=== PATIENT | female | born 1960 | race Caucasian/White ===

== ENCOUNTER 2019-10-17 13:25 | Emergency (ER) | payer BC ==
[2019-10-17] MEDS ORDERED: Sodium Chloride 0.9% 1,000 ML IV SCH (14:15)
[2019-10-17] MEDS ORDERED: Levofloxacin/Dextrose 5%-Water 500 MG in Premix Bag 1 BAG IV ONE (15:13)
--- NOTE | 2019-10-17 15:14 | EDM.PDOC ---
ED HPI GENERAL MEDICAL PROBLEM - General Chief Complaint: General Stated Complaint: weak, "dont feel good" Time Seen by Provider: 10/17/19 14:21 Source of Information: Reports: Patient, Family (daughter (RN)) History Limitations: Reports: No Limitations - History of Present Illness INITIAL COMMENTS - FREE TEXT/NARRATIVE: Josselyn is a 58 yr old female who presents to the ED with complaints of weakness and just not feeling well. She states she is currently being treated for Bone cancer in the left femur. She states it started with ovarian cancer and then ended up getting lung cancer with the mets to the bone. She admits to undergoing chemotherapy last week and doesn't seem to be doing well with it. She did have radiation to the left femur at the beginning of this month. Last chemo session she states she had to chemo agents. She has been nauseated since the chemo but was able to keep some pudding down today. Overall feels like she is continuously getting weaker. Her daughter is a nurse for home health/ hospice and is also her bean sprout grower at this time. Requesting to go home today as she feels more comfortable at home. She continues to have burning with urination which she has been getting antibiotics for. She admits she hasn't felt like drinking fluids and hasn't had much water. Bilateral Feet Pain Score (Numeric/FACES): 4 - Related Data Allergies Allergy/AdvReac Type Severity Reaction Status Date / Time hydrocodone Allergy Rash Verified 10/17/19 13:32 Sulfa (Sulfonamide Allergy Rash Verified 10/17/19 13:32 Antibiotics) Home Meds: Home Meds Gabapentin 100 mg PO DAILY 06/02/14 [History] Gabapentin 300 mg PO BEDTIME 06/02/14 [History] Rosuvastatin [Crestor] 5 mg PO BEDTIME 06/02/14 [History] Aspirin [Halfprin] 81 mg PO BEDTIME 10/02/14 [History] Lisinopril 20 mg PO DAILY 10/02/14 [History] Metoprolol Succinate [Toprol Xl] 50 mg PO BID 10/02/14 [History] oxyCODONE HCl/Acetaminophen [oxyCODONE-Acetaminophen 5-325] 1 - 2 tab PO Q4H PRN 10/02/14 [History] ALPRAZolam [Alprazolam] 0.25 - 0.5 mg PO BEDTIME PRN 10/29/15 [History] Clopidogrel Bisulfate [Clopidogrel] 75 mg PO DAILY 10/29/15 [History] Morphine [MS Contin] 30 mg PO TID 10/29/15 [History] Ondansetron [Zofran] 8 mg PO TID PRN 10/29/15 [History] Bumetanide 1 mg PO ASDIRECTED 12/15/17 [History] Calcium Carbonate [Calcium] 500 mg PO BID 12/15/17 [History] Gabapentin [Neurontin] 100 mg PO QAM 08/18/18 [History] Warfarin Sodium [Coumadin] 5 mg PO ASDIRECTED 04/23/19 [History] Albuterol Sulfate [Proair Digihaler] 2 inh INH Q6H PRN 10/17/19 [History] Cholecalciferol (Vitamin D3) [Vitamin D3] 2,000 unit PO DAILY 10/17/19 [History] Magnesium Chloride [Slow-Mag] 1 tab PO BID 10/17/19 [History] Nystatin [Nystatin Oral Syringe] 100,000 unit PO QID PRN 10/17/19 [History] OLANZapine [Zyprexa] 5 mg PO BEDTIME 10/17/19 [History] Omeprazole 20 mg PO DAILY 10/17/19 [History] Promethazine [Phenergan] 12.5 mg PO Q6H PRN 10/17/19 [History] Promethazine [Phenergan] 12.5 mg TOP Q6H PRN 10/17/19 [History] Warfarin Sodium 2.5 mg PO ASDIRECTED 10/17/19 [History] Zinc 50 mg PO DAILY 10/17/19 [History] metFORMIN [Glucophage] 500 mg PO BID 10/17/19 [History] Past Medical History Cardiovascular History: Reports: Hypertension Gastrointestinal History: Reports: GERD Psychiatric History: Reports: Anxiety Endocrine/Metabolic History: Reports: Diabetes, Type II Oncologic (Cancer) History: Reports: Bone, Lung, Metastatic, Uterine - Infectious Disease History Infectious Disease History: Reports: Extended Spectrum Beta-Lactamase (ESBL) - Past Surgical History Other Oncologic Surgeries/Procedures: recent radiation to LLE, currently on chemo Social & Family History - Family History Family Medical History: Noncontributory - Tobacco Use Smoking Status *Q: Light Tobacco Smoker Years of Tobacco use: 40 Packs/Tins Daily: 0.1 - Caffeine Use Caffeine Use: Reports: Coffee - Recreational Drug Use Recreational Drug Use: No ED ROS GENERAL - Review of Systems Review Of Systems: See Below Constitutional: Reports: Weakness, Fatigue, Decreased Appetite. Denies: Fever, Chills HEENT: Reports: No Symptoms Respiratory: Denies: Shortness of Breath, Wheezing, Cough Cardiovascular: Denies: Chest Pain, Lightheadedness, Palpitations Endocrine: Reports: No Symptoms GI/Abdominal: Reports: Abdominal Pain, Diarrhea, Nausea. Denies: Bloody Stool, Constipation, Hematochezia, Melena, Vomiting : Reports: Dysuria, Frequency. Denies: Hematuria Musculoskeletal: Reports: Leg Pain Skin: Reports: No Symptoms Neurological: Reports: No Symptoms ED EXAM, GENERAL - Physical Exam Exam: See Below Exam Limited By: No Limitations General Appearance: Alert, No Apparent Distress Ears: Normal External Exam, Hearing Grossly Normal Nose: Normal Inspection, No Blood Throat/Mouth: Normal Inspection, Normal Lips, Normal Teeth, Normal Oropharynx, Normal Voice, No Airway Compromise Head: Atraumatic, Normocephalic Neck: Normal Inspection, Supple Respiratory/Chest: No Respiratory Distress, Lungs Clear, No Accessory Muscle Use , Decreased Breath Sounds. No: Crackles, Rales, Rhonchi, Wheezing Cardiovascular: Regular Rate, Rhythm, No Murmur GI/Abdominal: Normal Bowel Sounds, Soft, No Organomegaly, No Distention, No Mass , Tender (mild generalized tenderness) Extremities: Pedal Edema (trace pitting left ) Neurological: Alert, Oriented, Normal Cognition, No Motor/Sensory Deficits Psychiatric: Normal Affect, Normal Mood Skin Exam: Warm, Dry, Intact, Normal Color, No Rash Course - Vital Signs Last Recorded V/S: Last Vital Signs Temp 96 F L 10/17/19 13:30 Pulse 104 H 10/17/19 13:30 Resp 18 10/17/19 13:30 BP 122/54 L 10/17/19 13:30 Pulse Ox 100 10/17/19 13:30 - Orders/Labs/Meds Orders: Active Orders 24 hr Category Date Time Status UA RFX THOMAS AND CULT IF INDIC [URIN] Stat Lab 10/17/19 14:02 Ordered Levofloxacin/Dextrose 5%-Water [Levaquin in D5W 500 MG/ Med 10/17/19 15:13 Ordered 100 ML] 500 mg Premix Bag 1 bag IV ONETIME Magnesium Sulfate/D5W [Magnesium Sulfate in D5W 100 Med 10/17/19 15:45 Active Premix] 2 gm Premix Bag 1 bag IV ONETIME Sodium Chloride 0.9% [Normal Saline] 1,000 ml Med 10/17/19 14:15 Active IV ASDIRECTED Medication Orders Sodium Chloride (Normal Saline) 1,000 mls @ 150 mls/hr IV ASDIRECTED LUANN Last Admin: 10/17/19 14:16 Dose: 150 mls/hr Levofloxacin/Dextrose 500 mg/ (Premix) 100 mls @ 100 mls/hr IV ONETIME ONE Stop: 10/17/19 16:12 Magnesium Sulfate/Dextrose 2 (gm/ Premix) 200 mls @ 100 mls/hr IV ONETIME ONE Stop: 10/17/19 17:44 Last Admin: 10/17/19 15:51 Dose: 100 mls/hr Labs: Laboratory Tests 10/17/19 10/17/19 10/17/19 Range/Units 14:13 14:13 14:30 WBC 1.4 L* (5.0-10.0) 10^3/uL RBC 2.79 L (4.00-5.50) 10^6/uL Hgb 8.2 L (12.0-16.0) g/dL Hct 24.4 L (37.0-47.0) % MCV 87.5 (82.0-94.0) fL MCH 29.4 (27.0-32.0) pg MCHC 33.6 (33.0-38.0) g/dL RDW Coeff of Eric 15.3 H (11.0-15.0) % Plt Count 74 L (150-400) 10^3/uL MPV Cancelled Add Manual Diff Yes Neutrophils % (Manual) 56 (35-85) % Band Neutrophils % 8 H (0-5) % Lymphocytes % (Manual) 26 (21-55) % Monocytes % (Manual) 10 (2-12) % Absolute Neutrophils 0.90 L (1.80-7.00) 10^3/uL Lymphocytes # (Manual) 0.36 L (1.00-4.80) 10^3/uL Monocytes # (Manual) 0.14 (0.00-0.80) 10^3/uL Platelet Estimate Decreased L (ADEQUATE) PT 63.9 H (9.7-12.3) SEC INR 6.45 H* (0.92-1.18) Sodium 123 L* (136-145) mEq/L Potassium 4.1 (3.5-5.0) mEq/L Chloride 89 L (98-106) mEq/L Carbon Dioxide 23 (21-32) mmol/L BUN 25 H (7-18) mg/dL Creatinine 1.0 (0.6-1.0) mg/dL Est Cr Clr Drug Dosing 49.49 mL/min Estimated GFR (MDRD) 57 L (>=60) mL/min Glucose 105 H (75-99) mg/dL Calcium 7.8 L (8.4-10.1) mg/dL Magnesium (1.8-2.4) mg/dL Total Bilirubin 0.5 (0.0-1.0) mg/dL AST 20 (15-37) U/L ALT 14 (12-78) U/L Alkaline Phosphatase 91 (46-116) U/L C-Reactive Protein 27.6 H (0.2-0.8) mg/dL Total Protein 6.1 L (6.4-8.2) g/dL Albumin 2.3 L (3.4-5.0) g/dL 10/17/19 Range/Units 15:12 WBC (5.0-10.0) 10^3/uL RBC (4.00-5.50) 10^6/uL Hgb (12.0-16.0) g/dL Hct (37.0-47.0) % MCV (82.0-94.0) fL MCH (27.0-32.0) pg MCHC (33.0-38.0) g/dL RDW Coeff of Eric (11.0-15.0) % Plt Count (150-400) 10^3/uL MPV Add Manual Diff Neutrophils % (Manual) (35-85) % Band Neutrophils % (0-5) % Lymphocytes % (Manual) (21-55) % Monocytes % (Manual) (2-12) % Absolute Neutrophils (1.80-7.00) 10^3/uL Lymphocytes # (Manual) (1.00-4.80) 10^3/uL Monocytes # (Manual) (0.00-0.80) 10^3/uL Platelet Estimate (ADEQUATE) PT (9.7-12.3) SEC INR (0.92-1.18) Sodium (136-145) mEq/L Potassium (3.5-5.0) mEq/L Chloride (98-106) mEq/L Carbon Dioxide (21-32) mmol/L BUN (7-18) mg/dL Creatinine (0.6-1.0) mg/dL Est Cr Clr Drug Dosing mL/min Estimated GFR (MDRD) (>=60) mL/min Glucose (75-99) mg/dL Calcium (8.4-10.1) mg/dL Magnesium 0.9 L (1.8-2.4) mg/dL Total Bilirubin (0.0-1.0) mg/dL AST (15-37) U/L ALT (12-78) U/L Alkaline Phosphatase (46-116) U/L C-Reactive Protein (0.2-0.8) mg/dL Total Protein (6.4-8.2) g/dL Albumin (3.4-5.0) g/dL Meds: Medications Generic Name Dose Route Start Last Admin Trade Name Freq PRN Reason Stop Dose Admin Sodium Chloride 1,000 mls @ 150 mls/hr 10/17/19 14:15 10/17/19 14:16 Normal Saline IV 150 mls/hr ASDIRECTED LUANN Administration Levofloxacin/Dextrose 500 mg/ 100 mls @ 100 mls/hr 10/17/19 15:13 Premix IV 10/17/19 16:12 ONETIME ONE Magnesium Sulfate/Dextrose 2 200 mls @ 100 mls/hr 10/17/19 15:45 10/17/19 15: 51 gm/ Premix IV 10/17/19 17:44 100 mls/hr ONETIME ONE Administration Departure - Departure Time of Disposition: 19:00 Disposition: Home, Self-Care 01 Clinical Impression: Hyponatremia, Hypomagnesemia, Excessive anticoagulation, Generalized weakness, Effect of chemotherapy - Discharge Information Instructions: Hypomagnesemia, Weakness, [id number] Forms: ED Department Discharge Additional Instructions: 1) Salt tablets - 1 tablet twice a day for low sodium level 2) Magnesium Sulfate 500mg - 1 tablet twice a day for low magnesium level. May stop the SloMag 3) Hold Coumadin until Tuesday and recheck INR. If INR is therapeutic 2-3, recommend restarting at 2.5mg daily with 5mg one day a week. 4) Levaquin 500mg - 1/2 tablet daily for 5 days. For recurrent urinary tract infections 5) May stop metformin at this time 6) Promethazine gel called into [facility] and they will compound today or tomorrow. They will drop off salt tablets, magnesium and Levaquin today for sure. 7) Recheck CBC, BMP & magnesium in 1 week. 8) Follow up if any concerns of call at [phone] Sepsis Event Note - Evaluation Sepsis Screening Result: No Definite Risk - Focused Exam Vital Signs: Vital Signs Temp Pulse Resp BP Pulse Ox 10/17/19 13:30 96 F L 104 H 18 122/54 L 100 Date Exam was Performed: 10/17/19 Time Exam was Performed: 16:08 - Problem List & Annotations (1) Effect of chemotherapy SNOMED Code(s): 873899306 Code(s): AWD2125 - Status: Acute (2) Excessive anticoagulation SNOMED Code(s): 04370289, 284677505 Code(s): EHR9584 - Status: Acute (3) Generalized weakness SNOMED Code(s): 12456284 Code(s): R53.1 - WEAKNESS Status: Acute (4) Hypomagnesemia SNOMED Code(s): 589980284 Code(s): E83.42 - HYPOMAGNESEMIA Status: Acute (5) Hyponatremia SNOMED Code(s): 12678408 Code(s): E87.1 - HYPO-OSMOLALITY AND HYPONATREMIA Status: Acute - My Orders Last 24 Hours: My Active Orders 10/17/19 14:02 UA RFX THOMAS AND CULT IF INDIC [URIN] Stat 10/17/19 14:15 Sodium Chloride 0.9% [Normal Saline] 1,000 ml IV ASDIRECTED 10/17/19 15:13 Levofloxacin/Dextrose 5%-Water [Levaquin in D5W 500 MG/100 ML] 500 mg Premix Bag 1 bag IV ONETIME 10/17/19 15:45 Magnesium Sulfate/D5W [Magnesium Sulfate in D5W 100 Premix] 2 gm Premix Bag 1 bag IV ONETIME - Assessment/Plan Last 24 Hours: My Active Orders 10/17/19 14:02 UA RFX THOMAS AND CULT IF INDIC [URIN] Stat 10/17/19 14:15 Sodium Chloride 0.9% [Normal Saline] 1,000 ml IV ASDIRECTED 10/17/19 15:13 Levofloxacin/Dextrose 5%-Water [Levaquin in D5W 500 MG/100 ML] 500 mg Premix Bag 1 bag IV ONETIME 10/17/19 15:45 Magnesium Sulfate/D5W [Magnesium Sulfate in D5W 100 Premix] 2 gm Premix Bag 1 bag IV ONETIME Plan: Consulted with Dr. Montes (oncologist) at [facility]. Further instructions advised for recheck in 1 week. Please see additional instructions. Josselyn wishes to go home tonight which we will respect her wishes. Symptoms to watch for discussed with Josselyn and her daughter Bre, who is her bean sprout grower.
[2019-10-17] MEDS ORDERED: Magnesium Sulfate (4.06 MEQ/ML) 1 GM/2 ML SDV IV ONE (15:40)
[2019-10-17] MEDS ORDERED: Magnesium Sulfate/D5W 2 GM in Premix Bag 1 BAG IV ONE (15:45)
[2019-10-17] MEDS ORDERED: MAGNESIUM SULFATE IV ONE (16:45)
[2019-10-17] MEDS ORDERED: D5W IV ONE (16:45)
== END 2019-10-17 18:58 | disposition home or self-care (01) ==
LOC: CC.ED 13:25
DX: E87.1 Hypo-osmolality and hyponatremia (principal); E83.42 Hypomagnesemia; D68.318 Other hemorrhagic disorder due to intrinsic circulating anticoagulants, antibodies, or inhibitors; T45.1X5A Adverse effect of antineoplastic and immunosuppressive drugs, initial encounter; K21.9 Gastro-esophageal reflux disease without esophagitis; Z79.899 Other long term (current) drug therapy; F41.9 Anxiety disorder, unspecified; E11.9 Type 2 diabetes mellitus without complications; F17.210 Nicotine dependence, cigarettes, uncomplicated; Z79.84 Long term (current) use of oral hypoglycemic drugs; Z79.82 Long term (current) use of aspirin; Z79.01 Long term (current) use of anticoagulants; Z79.02 Long term (current) use of antithrombotics/antiplatelets; Z88.5 Allergy status to narcotic agent; Z88.2 Allergy status to sulfonamides
CPT/HCPCS: 80053; 81001; 83735; 85025; 85610; 86140; 87086; 87088; 87186; 96361; 96365; 96366; 96367; 99284; J1642; J1956; J3475; J7030; 81003